=== PATIENT | female | born 1955 | race Asian ===

== ENCOUNTER 2022-06-03 08:18 | Emergency (ER) | payer MEDICARE ==
[2022-06-03] MEDS ORDERED: FLUCONAZOLE 200 MG TAB PO ONE (08:59)
[2022-06-03] MEDS ORDERED: HYDROcodone/ACETAMINOPHEN 5-325 MG TAB PO ONE (08:59)
--- NOTE | 2022-06-03 09:03 | Emergency Department Report ---
HPI - General Chief Complaint: Urogenital-Female Time Seen by Provider: 06/03/22 08:50 - HPI HPI: Room 36 The patient is a six 7-year-old female present with chief complaint of intertriginous candidiasis. Patient states she developed left inguinal rash 2 days ago. Patient is a resident in a group home and states last night they initiated nystatin therapy placed in the powder in the left groin. The patient states when she awakened this morning the rash was still present so she wanted to come to the emergency department. In the ED patient was informed that we will take time for nystatin to treat the infection. Patient complains of burning and irritation in the left inguinal region ED Past Medical Hx - Past Medical History Hx Hypertension: Yes Hx Diabetes: Yes Hx COPD: Yes Hx HIV: Yes - Surgical History Hx Cholecystectomy: Yes Additional Surgical History: Hysterectomy, hernia repair - Family History Family history: no significant - Social History Smoking Status: Current Every Day Smoker (1 pack/day) Substance Use Type: None - Medications Home Medications: Home Medications Medication Instructions Recorded Confirmed Last Taken Type Acetaminophen [Aphen] 2 tab PO Q8HR PRN 02/12/22 02/12/22 Unknown History Aspirin [Aspirin BABY CHEW TAB] 81 mg PO QDAY 02/12/22 02/12/22 Unknown History Descovy 200-25 mg Tablet 1 tab PO DAILY 02/12/22 02/12/22 Unknown History Famotidine [Pepcid] 20 mg PO BID #30 tablet 02/12/22 Unknown Rx Fluticasone Propionate [Flovent 1 spray .ROUTE DAILY 02/12/22 02/12/22 Unknown History Diskus] Gabapentin 1 tab PO TID 02/12/22 02/12/22 Unknown History Loratadine [Allergy Relief] 10 mg PO DAILY 02/12/22 02/12/22 Unknown History Losartan [Cozaar] 50 mg PO QDAY #30 tablet 02/12/22 Unknown Rx Maalox Advanced Suspension 30 ml PO Q8HR PRN 02/12/22 02/12/22 Unknown History Mirtazapine [Remeron 15mg TAB] 15 mg PO QHS 02/12/22 02/12/22 Unknown History Ondansetron (Nf) 4 mg PO Q8HR PRN 02/12/22 02/12/22 Unknown History Pantoprazole [Protonix TAB] 40 mg PO QDAY 02/12/22 02/12/22 Unknown History Polymyxin B Sulf/Trimethoprim 17 gm PO BID PRN 02/12/22 02/12/22 Unknown History Prednisone [predniSONE 10 mg 10 mg PO .TAPER #1 02/12/22 Unknown Rx (6-Day Pack, 21 Tabs)] Prezcobix 800 mg-150 mg (Nf) 1 tab PO DAILY 02/12/22 02/12/22 Unknown History Tiotropium [place] [Spiriva] 18 mcg IH DAILY 02/12/22 02/12/22 Unknown History buPROPion HCl [Zyban] 1 tab PO DAILY 02/12/22 02/12/22 Unknown History carvediloL [Coreg] 12.5 mg PO BID@0800,1700 #60 tablet 02/12/22 Unknown Rx oxyCODONE /ACETAMINOPHEN [Percocet 1 tab PO Q6H PRN #12 tablet 02/12/22 Unknown Rx 5/325 mg] polyethylene glycoL 3350 17 gm PO BID PRN 02/12/22 02/12/22 Unknown History Lispro Insulin [HumaLOG] 0 unit SUB-Q ACHS units 02/13/22 Unknown Rx Magnesium Hydroxide [Milk of 30 ml PO Q4H PRN oral.liqd 02/13/22 Unknown Rx Magnesia] HYDROcodone/APAP 5-325 [[place] 1 - 2 each PO Q6HR PRN #14 tablet 06/03/22 Unknown Rx 5/325] Nystatin 1 each TP BID 10 Days 06/03/22 Unknown Rx ED Review of Systems ROS: Stated complaint: YEAST INFECTION Other details as noted in HPI Constitutional: denies: fever Eyes: denies: eye pain ENT: denies: throat pain Respiratory: no symptoms reported Cardiovascular: denies: chest pain Endocrine: no symptoms reported Gastrointestinal: denies: abdominal pain Musculoskeletal: denies: back pain Skin: rash Neurological: denies: headache Physical Exam - Physical Exam Vital Signs: Vital Signs 06/03/22 08:25 Temperature 97.8 F Pulse Rate 86 Respiratory 18 Rate Blood Pressure 110/70 [Left] O2 Sat by Pulse 98 Oximetry Physical Exam: GENERAL: The patient is well-developed well-nourished female lying on stretcher not appearing to be in acute distress. [] HEENT: Normocephalic. Atraumatic. Extraocular motions are intact. Patient has moist mucous membranes. NECK: Supple. Trachea midline CHEST/LUNGS: Clear to auscultation. There is no respiratory distress noted. HEART/CARDIOVASCULAR: Regular. There is no tachycardia. There is no gallop rub or murmur. ABDOMEN: Abdomen is soft, nontender. Patient has normal bowel sounds. There is no abdominal distention. SKIN: There is erythema in the left inguinal region consistent with intertriginous candidiasis. Evidence of nystatin already placed on the rash. NEURO: The patient is awake, alert, and oriented. The patient is cooperative. The patient has no focal neurologic deficits. The patient has normal speech. GCS 15 MUSCULOSKELETAL: There is no evidence of acute injury. ED Course Vital Signs 06/03/22 08:25 Temperature 97.8 F Pulse Rate 86 Respiratory 18 Rate Blood Pressure 110/70 [Left] O2 Sat by Pulse 98 Oximetry ED Medical Decision Making - Differential Diagnosis Intertriginous candidiasis Critical care attestation.: If time is entered above; I have spent that time in minutes in the direct care of this critically ill patient, excluding procedure time. ED Disposition Clinical Impression: Intertriginous candidiasis Disposition: 03 ALF FACILITY Is pt being admited?: No Does the pt Need Aspirin: No Condition: Stable Instructions: Skin Yeast Infection Additional Instructions: Return to the emergency department should you develop worsening symptoms, inability to tolerate food or liquids, high fever or any other concerns Prescriptions: HYDROcodone/APAP 5-325 [[place] 5/325] 1 - 2 each PO Q6HR PRN #14 tablet PRN Reason: Pain Nystatin 1 each TP BID 10 Days Referrals: PRIMARY CARE [Referring] - 3-5 Days Time of Disposition: 09:13
[2022-06-03 14:07] VITALS: BP 102/81
== END 2022-06-03 14:00 ==
LOC: ED 08:18
DX: B37.2 Candidiasis of skin and nail (principal); I10 Essential (primary) hypertension; E11.9 Type 2 diabetes mellitus without complications; J44.1 Chronic obstructive pulmonary disease with (acute) exacerbation; Z21 Asymptomatic human immunodeficiency virus [HIV] infection status; F17.200 Nicotine dependence, unspecified, uncomplicated
CPT/HCPCS: 99283

== ENCOUNTER 2022-06-06 05:00 | Emergency (ER) | payer MEDICARE ==
[2022-06-06 09:04] LABS: Basophils % (Auto) 0.6 % (0.0-1.8); Eosinophils # (Auto) 0.1 K/mm3 (0.0-0.4); Eosinophils % (Auto) 1.8 % (0.0-4.3); Hematocrit 37.8 % (30.3-42.9); Hemoglobin 12.2 gm/dl (10.1-14.3); Lymphocytes # (Auto) 1.8 K/mm3 (1.2-5.4); Lymphocytes % (Auto) 23.5 % (13.4-35.0); Mean Corpuscular HGB Conc 32 % (30-34); Mean Corpuscular Volume 94 fl (79-97); Monocytes # (Auto) 0.9 K/mm3 (0.0-0.8); Monocytes % (Auto) 11.9 % (0.0-7.3); Platelet Count 348 K/mm3 (140-440); Red Blood Count 4.02 M/mm3 (3.65-5.03); Red Cell Distribution Width 15.7 % (13.2-15.2)
[2022-06-06 09:21] LABS: Calcium 8.7 mg/dL (8.4-10.2)
[2022-06-06 09:34] LABS: Mucus,Urine FEW /HPF; RBC,Urine < 1.0 /HPF (0.0-6.0); WBC,Urine < 1.0 /HPF (0.0-6.0)
[2022-06-06 10:37] LABS: Color,Urine Straw (Yellow)
[2022-06-06 10:38] LABS: Bilirubin,Urine Negative (Negative); Blood,Urine Negative (Negative); Urobilinogen,Urine < 2.0 mg/dL (<2.0)
--- NOTE | 2022-06-06 11:34 | Emergency Department Report ---
- General Chief complaint: Urogenital-Female Stated complaint: VAGINAL BURNING Time Seen by Provider: 06/06/22 07:18 Source: patient, EMS Mode of arrival: Stretcher Limitations: Physical Limitation - History of Present Illness Initial comments: Patient is 67-year-old female with history of diabetes seen here on 06/03 for groin candidiasis for which she was prescribed nystatin powder. States he woke up this morning with persistent rash and requested to be evaluated. Denies feve r or chills. - Related Data Home Medications Medication Instructions Recorded Confirmed Last Taken Acetaminophen [Aphen] 2 tab PO Q8HR PRN 02/12/22 02/12/22 Unknown Aspirin [Aspirin BABY CHEW TAB] 81 mg PO QDAY 02/12/22 02/12/22 Unknown Descovy 200-25 mg Tablet 1 tab PO DAILY 02/12/22 02/12/22 Unknown Fluticasone Propionate [Flovent 1 spray .ROUTE DAILY 02/12/22 02/12/22 Unknown Diskus] Gabapentin 1 tab PO TID 02/12/22 02/12/22 Unknown Loratadine [Allergy Relief] 10 mg PO DAILY 02/12/22 02/12/22 Unknown Maalox Advanced Suspension 30 ml PO Q8HR PRN 02/12/22 02/12/22 Unknown Mirtazapine [Remeron 15mg TAB] 15 mg PO QHS 02/12/22 02/12/22 Unknown Ondansetron (Nf) 4 mg PO Q8HR PRN 02/12/22 02/12/22 Unknown Pantoprazole [Protonix TAB] 40 mg PO QDAY 02/12/22 02/12/22 Unknown Polymyxin B Sulf/Trimethoprim 17 gm PO BID PRN 02/12/22 02/12/22 Unknown Prezcobix 800 mg-150 mg (Nf) 1 tab PO DAILY 02/12/22 02/12/22 Unknown Tiotropium [place] [Spiriva] 18 mcg IH DAILY 02/12/22 02/12/22 Unknown buPROPion HCl [Zyban] 1 tab PO DAILY 02/12/22 02/12/22 Unknown polyethylene glycoL 3350 17 gm PO BID PRN 02/12/22 02/12/22 Unknown Previous Rx's Medication Instructions Recorded Last Taken Type Famotidine [Pepcid] 20 mg PO BID #30 tablet 02/12/22 Unknown Rx Losartan [Cozaar] 50 mg PO QDAY #30 tablet 02/12/22 Unknown Rx Prednisone [predniSONE 10 mg 10 mg PO .TAPER #1 02/12/22 Unknown Rx (6-Day Pack, 21 Tabs)] carvediloL [Coreg] 12.5 mg PO BID@0800,1700 #60 tablet 02/12/22 Unknown Rx oxyCODONE /ACETAMINOPHEN [Percocet 1 tab PO Q6H PRN #12 tablet 02/12/22 Unknown Rx 5/325 mg] Lispro Insulin [HumaLOG] 0 unit SUB-Q ACHS units 02/13/22 Unknown Rx Magnesium Hydroxide [Milk of 30 ml PO Q4H PRN oral.liqd 02/13/22 Unknown Rx Magnesia] HYDROcodone/APAP 5-325 [[place] 1 - 2 each PO Q6HR PRN #14 tablet 06/03/22 Unknown Rx 5/325] Nystatin 1 each TP BID 10 Days 06/03/22 Unknown Rx Allergies Allergy/AdvReac Type Severity Reaction Status Date / Time metronidazole [From Flagyl] Allergy Unknown Verified 06/03/22 08:27 Abscess Boil HPI - HPI Chief Complaint: Urogenital-Female Stated Complaint: VAGINAL BURNING Time Seen by Provider: 06/06/22 07:18 Home Medications: Home Medications Medication Instructions Recorded Confirmed Last Taken Acetaminophen [Aphen] 2 tab PO Q8HR PRN 02/12/22 02/12/22 Unknown Aspirin [Aspirin BABY CHEW TAB] 81 mg PO QDAY 02/12/22 02/12/22 Unknown Descovy 200-25 mg Tablet 1 tab PO DAILY 02/12/22 02/12/22 Unknown Fluticasone Propionate [Flovent 1 spray .ROUTE DAILY 02/12/22 02/12/22 Unknown Diskus] Gabapentin 1 tab PO TID 02/12/22 02/12/22 Unknown Loratadine [Allergy Relief] 10 mg PO DAILY 02/12/22 02/12/22 Unknown Maalox Advanced Suspension 30 ml PO Q8HR PRN 02/12/22 02/12/22 Unknown Mirtazapine [Remeron 15mg TAB] 15 mg PO QHS 02/12/22 02/12/22 Unknown Ondansetron (Nf) 4 mg PO Q8HR PRN 02/12/22 02/12/22 Unknown Pantoprazole [Protonix TAB] 40 mg PO QDAY 02/12/22 02/12/22 Unknown Polymyxin B Sulf/Trimethoprim 17 gm PO BID PRN 02/12/22 02/12/22 Unknown Prezcobix 800 mg-150 mg (Nf) 1 tab PO DAILY 02/12/22 02/12/22 Unknown Tiotropium [place] [Spiriva] 18 mcg IH DAILY 02/12/22 02/12/22 Unknown buPROPion HCl [Zyban] 1 tab PO DAILY 02/12/22 02/12/22 Unknown polyethylene glycoL 3350 17 gm PO BID PRN 02/12/22 02/12/22 Unknown Previous Rx's Medication Instructions Recorded Last Taken Type Famotidine [Pepcid] 20 mg PO BID #30 tablet 02/12/22 Unknown Rx Losartan [Cozaar] 50 mg PO QDAY #30 tablet 02/12/22 Unknown Rx Prednisone [predniSONE 10 mg 10 mg PO .TAPER #1 02/12/22 Unknown Rx (6-Day Pack, 21 Tabs)] carvediloL [Coreg] 12.5 mg PO BID@0800,1700 #60 tablet 02/12/22 Unknown Rx oxyCODONE /ACETAMINOPHEN [Percocet 1 tab PO Q6H PRN #12 tablet 02/12/22 Unknown Rx 5/325 mg] Lispro Insulin [HumaLOG] 0 unit SUB-Q ACHS units 02/13/22 Unknown Rx Magnesium Hydroxide [Milk of 30 ml PO Q4H PRN oral.liqd 02/13/22 Unknown Rx Magnesia] HYDROcodone/APAP 5-325 [[place] 1 - 2 each PO Q6HR PRN #14 tablet 06/03/22 Unknown Rx 5/325] Nystatin 1 each TP BID 10 Days 06/03/22 Unknown Rx Allergies/Adverse Reactions: Allergies Allergy/AdvReac Type Severity Reaction Status Date / Time metronidazole [From Flagyl] Allergy Unknown Verified 06/03/22 08:27 ED Review of Systems ROS: Stated complaint: VAGINAL BURNING Other details as noted in HPI Constitutional: denies: chills, fever Respiratory: denies: cough, shortness of breath, wheezing Cardiovascular: denies: chest pain, palpitations Gastrointestinal: denies: abdominal pain, nausea, diarrhea Musculoskeletal: denies: back pain, joint swelling, arthralgia Skin: rash Neurological: as per HPI Psychiatric: denies: anxiety, depression ED Past Medical Hx - Past Medical History Previous Medical History?: Yes Hx Hypertension: Yes Hx Diabetes: Yes Hx COPD: Yes Hx HIV: Yes - Surgical History Past Surgical History?: Yes Hx Cholecystectomy: Yes Additional Surgical History: Hysterectomy, hernia repair - Social History Smoking Status: Never Smoker Substance Use Type: None - Medications Home Medications: Home Medications Medication Instructions Recorded Confirmed Last Taken Type Acetaminophen [Aphen] 2 tab PO Q8HR PRN 02/12/22 02/12/22 Unknown History Aspirin [Aspirin BABY CHEW TAB] 81 mg PO QDAY 02/12/22 02/12/22 Unknown History [place]cov[place] 200-25 mg Tablet 1 tab PO DAILY 02/12/22 02/12/22 Unknown History Famotidine [Pepcid] 20 mg PO BID #30 tablet 02/12/22 Unknown Rx Fluticasone Propionate [Flovent 1 spray .ROUTE DAILY 02/12/22 02/12/22 Unknown History Diskus] Gabapentin 1 tab PO TID 02/12/22 02/12/22 Unknown History Loratadine [Allergy Relief] 10 mg PO DAILY 02/12/22 02/12/22 Unknown History Losartan [Cozaar] 50 mg PO QDAY #30 tablet 02/12/22 Unknown Rx Maalox Advanced Suspension 30 ml PO Q8HR PRN 02/12/22 02/12/22 Unknown History Mirtazapine [Remeron 15mg TAB] 15 mg PO QHS 02/12/22 02/12/22 Unknown History Ondansetron (Nf) 4 mg PO Q8HR PRN 02/12/22 02/12/22 Unknown History Pantoprazole [Protonix TAB] 40 mg PO QDAY 02/12/22 02/12/22 Unknown History Polymyxin B Sulf/Trimethoprim 17 gm PO BID PRN 02/12/22 02/12/22 Unknown History Prednisone [predniSONE 10 mg 10 mg PO .TAPER #1 02/12/22 Unknown Rx (6-Day Pack, 21 Tabs)] Prezcobix 800 mg-150 mg (Nf) 1 tab PO DAILY 02/12/22 02/12/22 Unknown History Tiotropium [place] [Spiriva] 18 mcg IH DAILY 02/12/22 02/12/22 Unknown History buPROPion HCl [Zyban] 1 tab PO DAILY 02/12/22 02/12/22 Unknown History carvediloL [Coreg] 12.5 mg PO BID@0800,1700 #60 tablet 02/12/22 Unknown Rx oxyCODONE /ACETAMINOPHEN [Percocet 1 tab PO Q6H PRN #12 tablet 02/12/22 Unknown Rx 5/325 mg] polyethylene glycoL 3350 17 gm PO BID PRN 02/12/22 02/12/22 Unknown History Lispro Insulin [HumaLOG] 0 unit SUB-Q ACHS units 02/13/22 Unknown Rx Magnesium Hydroxide [Milk of 30 ml PO Q4H PRN oral.liqd 02/13/22 Unknown Rx Magnesia] HYDROcodone/APAP 5-325 [[place] 1 - 2 each PO Q6HR PRN #14 tablet 06/03/22 Unknown Rx 5/325] Nystatin 1 each TP BID 10 Days 06/03/22 Unknown Rx ED Physical Exam - General Limitations: Physical Limitation General appearance: alert, in no apparent distress - Head Head exam: Present: atraumatic, normocephalic - Respiratory Respiratory exam: Present: normal lung sounds bilaterally. Absent: respiratory distress - Cardiovascular Cardiovascular Exam: Present: regular rate, normal rhythm, bradycardia - GI/Abdominal GI/Abdominal exam: Present: soft. Absent: distended, tenderness - External exam: Present: other ([place] rash to the groin) ED Course Vital Signs 06/06/22 06/06/22 06/06/22 05:01 08:24 08:31 Temperature 99 F Pulse Rate 88 80 79 Respiratory 18 15 15 Rate Blood Pressure 142/89 O2 Sat by Pulse 100 94 93 Oximetry 06/06/22 06/06/22 06/06/22 08:45 09:01 09:15 Temperature Pulse Rate 79 79 79 Respiratory 17 18 18 Rate Blood Pressure 105/65 102/67 102/67 O2 Sat by Pulse 94 92 96 Oximetry 06/06/22 06/06/22 06/06/22 09:31 09:45 10:01 Temperature Pulse Rate 79 76 76 Respiratory 19 19 20 Rate Blood Pressure 102/67 97/60 97/60 O2 Sat by Pulse 94 99 97 Oximetry 06/06/22 06/06/22 06/06/22 10:15 10:31 10:45 Temperature Pulse Rate 82 79 73 Respiratory 20 22 16 Rate Blood Pressure 97/60 168/123 168/123 O2 Sat by Pulse 87 92 97 Oximetry ED Medical Decision Making - Lab Data Result diagrams: 06/06/22 08:29 06/06/22 08:29 - Medical Decision Making Physical exam findings consistent with candidiasis of the inguinal folds. Basic labs are unremarkable. Vital signs are stable. Patient encouraged to continue nystatin powder as directed. Stable for discharge back to nursing facility. Critical care attestation.: If time is entered above; I have spent that time in minutes in the direct care of this critically ill patient, excluding procedure time. ED Disposition Clinical Impression: Intertriginous candidiasis Disposition: 03 LONGTERM FACILITY Is pt being admited?: No Condition: Stable Instructions: Skin Yeast Infection Referrals: RUCHI CONTI MD [Primary Care Provider] - 3-5 Days
[2022-06-06 15:42] VITALS: BP 120/86
== END 2022-06-06 15:43 ==
LOC: ED 05:00
DX: B37.2 Candidiasis of skin and nail (principal); Z88.8 Allergy status to other drugs, medicaments and biological substances; I10 Essential (primary) hypertension; E11.9 Type 2 diabetes mellitus without complications
CPT/HCPCS: 36415; 80048; 81001; 85025; 99283

== ENCOUNTER 2022-06-07 11:42 | Emergency (ER) | payer MEDICARE ==
[2022-06-07] MEDS ORDERED: HYDROcodone/ACETAMINOPHEN 5-325 MG TAB PO ONE (12:48)
--- NOTE | 2022-06-07 12:48 | Emergency Department Report ---
- General Chief complaint: Skin Rash Stated complaint: ABDOMEN PAIN Time Seen by Provider: 06/07/22 12:10 Source: patient, EMS Mode of arrival: Stretcher Limitations: No Limitations - History of Present Illness Initial comments: Patient is 67-year-old female returning today with complaint of painful candidal rash to her inguinal region/inner thighs. She was seen here yesterday for same. She is currently on nystatin powder. - Related Data Home Medications Medication Instructions Recorded Confirmed Last Taken Acetaminophen [Aphen] 2 tab PO Q8HR PRN 02/12/22 02/12/22 Unknown Aspirin [Aspirin BABY CHEW TAB] 81 mg PO QDAY 02/12/22 02/12/22 Unknown Descovy 200-25 mg Tablet 1 tab PO DAILY 02/12/22 02/12/22 Unknown Fluticasone Propionate [Flovent 1 spray .ROUTE DAILY 02/12/22 02/12/22 Unknown Diskus] Gabapentin 1 tab PO TID 02/12/22 02/12/22 Unknown Loratadine [Allergy Relief] 10 mg PO DAILY 02/12/22 02/12/22 Unknown Maalox Advanced Suspension 30 ml PO Q8HR PRN 02/12/22 02/12/22 Unknown Mirtazapine [Remeron 15mg TAB] 15 mg PO QHS 02/12/22 02/12/22 Unknown Ondansetron (Nf) 4 mg PO Q8HR PRN 02/12/22 02/12/22 Unknown Pantoprazole [Protonix TAB] 40 mg PO QDAY 02/12/22 02/12/22 Unknown Polymyxin B Sulf/Trimethoprim 17 gm PO BID PRN 02/12/22 02/12/22 Unknown Prezcobix 800 mg-150 mg (Nf) 1 tab PO DAILY 02/12/22 02/12/22 Unknown Tiotropium [place] [Spiriva] 18 mcg IH DAILY 02/12/22 02/12/22 Unknown buPROPion HCl [Zyban] 1 tab PO DAILY 02/12/22 02/12/22 Unknown polyethylene glycoL 3350 17 gm PO BID PRN 02/12/22 02/12/22 Unknown Previous Rx's Medication Instructions Recorded Last Taken Type Famotidine [Pepcid] 20 mg PO BID #30 tablet 02/12/22 Unknown Rx Losartan [Cozaar] 50 mg PO QDAY #30 tablet 02/12/22 Unknown Rx Prednisone [predniSONE 10 mg 10 mg PO .TAPER #1 02/12/22 Unknown Rx (6-Day Pack, 21 Tabs)] carvediloL [Coreg] 12.5 mg PO BID@0800,1700 #60 tablet 02/12/22 Unknown Rx oxyCODONE /ACETAMINOPHEN [Percocet 1 tab PO Q6H PRN #12 tablet 02/12/22 Unknown Rx 5/325 mg] Lispro Insulin [HumaLOG] 0 unit SUB-Q ACHS units 02/13/22 Unknown Rx Magnesium Hydroxide [Milk of 30 ml PO Q4H PRN oral.liqd 02/13/22 Unknown Rx Magnesia] HYDROcodone/APAP 5-325 [[place] 1 - 2 each PO Q6HR PRN #14 tablet 06/03/22 Unknown Rx 5/325] Nystatin 1 each TP BID 10 Days 06/03/22 Unknown Rx HYDROcodone/APAP 5-325 [[place] 1 each PO Q6HR PRN #12 tablet 06/07/22 Unknown Rx 5/325] Allergies Allergy/AdvReac Type Severity Reaction Status Date / Time metronidazole [From Flagyl] Allergy Unknown Verified 06/07/22 11:46 Abscess Boil HPI - HPI Chief Complaint: Skin Rash Stated Complaint: ABDOMEN PAIN Time Seen by Provider: 06/07/22 12:10 Home Medications: Home Medications Medication Instructions Recorded Confirmed Last Taken Acetaminophen [Aphen] 2 tab PO Q8HR PRN 02/12/22 02/12/22 Unknown Aspirin [Aspirin BABY CHEW TAB] 81 mg PO QDAY 02/12/22 02/12/22 Unknown [place] 200-25 mg Tablet 1 tab PO DAILY 02/12/22 02/12/22 Unknown Fluticasone Propionate [Flovent 1 spray .ROUTE DAILY 02/12/22 02/12/22 Unknown Diskus] Gabapentin 1 tab PO TID 02/12/22 02/12/22 Unknown Loratadine [Allergy Relief] 10 mg PO DAILY 02/12/22 02/12/22 Unknown Maalox Advanced Suspension 30 ml PO Q8HR PRN 02/12/22 02/12/22 Unknown Mirtazapine [Remeron 15mg TAB] 15 mg PO QHS 02/12/22 02/12/22 Unknown Ondansetron (Nf) 4 mg PO Q8HR PRN 02/12/22 02/12/22 Unknown Pantoprazole [Protonix TAB] 40 mg PO QDAY 02/12/22 02/12/22 Unknown Polymyxin B Sulf/Trimethoprim 17 gm PO BID PRN 02/12/22 02/12/22 Unknown Prezcobix 800 mg-150 mg (Nf) 1 tab PO DAILY 02/12/22 02/12/22 Unknown Tiotropium [place] [Spiriva] 18 mcg IH DAILY 02/12/22 02/12/22 Unknown buPROPion HCl [Zyban] 1 tab PO DAILY 02/12/22 02/12/22 Unknown polyethylene glycoL 3350 17 gm PO BID PRN 02/12/22 02/12/22 Unknown Previous Rx's Medication Instructions Recorded Last Taken Type Famotidine [Pepcid] 20 mg PO BID #30 tablet 02/12/22 Unknown Rx Losartan [Cozaar] 50 mg PO QDAY #30 tablet 02/12/22 Unknown Rx Prednisone [predniSONE 10 mg 10 mg PO .TAPER #1 02/12/22 Unknown Rx (6-Day Pack, 21 Tabs)] carvediloL [Coreg] 12.5 mg PO BID@0800,1700 #60 tablet 02/12/22 Unknown Rx oxyCODONE /ACETAMINOPHEN [Percocet 1 tab PO Q6H PRN #12 tablet 02/12/22 Unknown Rx 5/325 mg] Lispro Insulin [HumaLOG] 0 unit SUB-Q ACHS units 02/13/22 Unknown Rx Magnesium Hydroxide [Milk of 30 ml PO Q4H PRN oral.liqd 02/13/22 Unknown Rx Magnesia] HYDROcodone/APAP 5-325 [[place] 1 - 2 each PO Q6HR PRN #14 tablet 06/03/22 Unknown Rx 5/325] Nystatin 1 each TP BID 10 Days 06/03/22 Unknown Rx HYDROcodone/APAP 5-325 [[place] 1 each PO Q6HR PRN #12 tablet 06/07/22 Unknown Rx 5/325] Allergies/Adverse Reactions: Allergies Allergy/AdvReac Type Severity Reaction Status Date / Time metronidazole [From Flagyl] Allergy Unknown Verified 06/07/22 11:46 ED Review of Systems ROS: Stated complaint: ABDOMEN PAIN Other details as noted in HPI Constitutional: denies: chills, fever Respiratory: denies: cough, shortness of breath, wheezing Cardiovascular: denies: chest pain, palpitations Gastrointestinal: denies: abdominal pain, nausea, diarrhea Musculoskeletal: denies: back pain, joint swelling, arthralgia Skin: rash Neurological: denies: headache, weakness, paresthesias Psychiatric: denies: anxiety, depression ED Past Medical Hx - Past Medical History Hx Hypertension: Yes Hx Diabetes: Yes Hx COPD: Yes Hx HIV: Yes - Surgical History Hx Cholecystectomy: Yes Additional Surgical History: Hysterectomy, hernia repair - Social History Smoking Status: Never Smoker Substance Use Type: None - Medications Home Medications: Home Medications Medication Instructions Recorded Confirmed Last Taken Type Acetaminophen [Aphen] 2 tab PO Q8HR PRN 02/12/22 02/12/22 Unknown History Aspirin [Aspirin BABY CHEW TAB] 81 mg PO QDAY 02/12/22 02/12/22 Unknown History [place]cov[place] 200-25 mg Tablet 1 tab PO DAILY 02/12/22 02/12/22 Unknown History Famotidine [Pepcid] 20 mg PO BID #30 tablet 02/12/22 Unknown Rx Fluticasone Propionate [Flovent 1 spray .ROUTE DAILY 02/12/22 02/12/22 Unknown History Diskus] Gabapentin 1 tab PO TID 02/12/22 02/12/22 Unknown History Loratadine [Allergy Relief] 10 mg PO DAILY 02/12/22 02/12/22 Unknown History Losartan [Cozaar] 50 mg PO QDAY #30 tablet 02/12/22 Unknown Rx Maalox Advanced Suspension 30 ml PO Q8HR PRN 02/12/22 02/12/22 Unknown History Mirtazapine [Remeron 15mg TAB] 15 mg PO QHS 02/12/22 02/12/22 Unknown History Ondansetron (Nf) 4 mg PO Q8HR PRN 02/12/22 02/12/22 Unknown History Pantoprazole [Protonix TAB] 40 mg PO QDAY 02/12/22 02/12/22 Unknown History Polymyxin B Sulf/Trimethoprim 17 gm PO BID PRN 02/12/22 02/12/22 Unknown History Prednisone [predniSONE 10 mg 10 mg PO .TAPER #1 02/12/22 Unknown Rx (6-Day Pack, 21 Tabs)] Prezcobix 800 mg-150 mg (Nf) 1 tab PO DAILY 02/12/22 02/12/22 Unknown History Tiotropium [place] [Spiriva] 18 mcg IH DAILY 02/12/22 02/12/22 Unknown History buPROPion HCl [Zyban] 1 tab PO DAILY 02/12/22 02/12/22 Unknown History carvediloL [Coreg] 12.5 mg PO BID@0800,1700 #60 tablet 02/12/22 Unknown Rx oxyCODONE /ACETAMINOPHEN [Percocet 1 tab PO Q6H PRN #12 tablet 02/12/22 Unknown Rx 5/325 mg] polyethylene glycoL 3350 17 gm PO BID PRN 02/12/22 02/12/22 Unknown History Lispro Insulin [HumaLOG] 0 unit SUB-Q ACHS units 02/13/22 Unknown Rx Magnesium Hydroxide [Milk of 30 ml PO Q4H PRN oral.liqd 02/13/22 Unknown Rx Magnesia] HYDROcodone/APAP 5-325 [[place] 1 - 2 each PO Q6HR PRN #14 tablet 06/03/22 Unknown Rx 5/325] Nystatin 1 each TP BID 10 Days 06/03/22 Unknown Rx HYDROcodone/APAP 5-325 [[place] 1 each PO Q6HR PRN #12 tablet 06/07/22 Unknown Rx 5/325] ED Physical Exam - General Limitations: No Limitations General appearance: alert, in no apparent distress, obese - Head Head exam: Present: atraumatic, normocephalic - Respiratory Respiratory exam: Present: normal lung sounds bilaterally. Absent: respiratory distress, wheezes - Cardiovascular Cardiovascular Exam: Present: regular rate, normal rhythm, normal heart sounds - GI/Abdominal GI/Abdominal exam: Present: soft, other (Panniculus present covering inguinal folds). Absent: distended, tenderness - Rectal Rectal exam: Present: deferred - Neurological Exam Neurological exam: Present: alert, oriented X3 - Psychiatric Psychiatric exam: Present: normal affect, normal mood - Skin Skin exam: Present: warm, dry, erythema (Candidal rash to inguinal region between folds of thighs and large panniculus) ED Course Vital Signs 06/07/22 11:44 Temperature 98 F Pulse Rate 88 Respiratory 18 Rate Blood Pressure 114/74 [Left] O2 Sat by Pulse 99 Oximetry ED Medical Decision Making - Medical Decision Making Patient given Willow for pain. Explained to the patient that her candidal infection is difficult to treat given inability to lift her panniculus off of the affected areas. I encouraged her to consider following up with plastic surgeon for possible panniculectomy. Will discharge back to nursing facility with Rx for Willow. Critical care attestation.: If time is entered above; I have spent that time in minutes in the direct care of this critically ill patient, excluding procedure time. ED Disposition Clinical Impression: Jaquelin rash of groin Disposition: [facility] Is pt being admited?: No Does the pt Need Aspirin: No Condition: Stable Instructions: Skin Yeast Infection, Panniculectomy Additional Instructions: Please consider scheduling appointment with plastic surgeon to discuss possibility of panniculectomy. Please try your best to keep the affected areas as dry as possible. Time of Disposition: 12:53
[2022-06-07] MEDS ORDERED: diphenhydrAMINE 25 MG CAP PO ONE (13:54)
[2022-06-07 17:05] VITALS: BP 115/71
== END 2022-06-07 17:05 ==
LOC: ED 11:42
DX: B37.9 Candidiasis, unspecified (principal); I10 Essential (primary) hypertension; E11.9 Type 2 diabetes mellitus without complications; J44.1 Chronic obstructive pulmonary disease with (acute) exacerbation; Z21 Asymptomatic human immunodeficiency virus [HIV] infection status; Z90.49 Acquired absence of other specified parts of digestive tract; Z91.09 Other allergy status, other than to drugs and biological substances; Z79.899 Other long term (current) drug therapy
CPT/HCPCS: 99283

== ENCOUNTER 2022-07-17 08:06 | Emergency (ER) | payer MEDICARE ==
[2022-07-17] MEDS ORDERED: ACETAMINOPHEN 325 MG TAB PO ONE (10:17)
--- NOTE | 2022-07-17 10:22 | Emergency Department Report ---
ED Rash HPI - HPI Chief Complaint: Skin Rash Stated Complaint: ITCHING Rash Symptoms: Yes Itching, No Facial Swelling, No Tongue/Oral Swelling, No Breathing Difficulties, No Choking Sensation, No Wheezing/Dyspnea, No Peeling, No Blistering, No Fever, No Lightheaded, No Malaise, No Myalgias Severity: mild Other History: 67-year-old female presents to the ED complaining rash on her left arm and back times several years. Patient is a current resident of [facility]. She states she take Benadryl every night but it does not really help with the hip with the itching. There is no obvious rash noted the patient does have multiple bruising spot noted from where she is she states she is taking injection in her stomach. Patient is alert and oriented x3. No acute distress noted. No ill appearance noted. Denies any fever chills or nausea or vomiting. ED Review of Systems ROS: Stated complaint: ITCHING Other details as noted in HPI Constitutional: denies: chills, fever Eyes: denies: eye pain, eye discharge, vision change ENT: denies: ear pain, throat pain Respiratory: denies: cough, shortness of breath, wheezing Cardiovascular: denies: chest pain, palpitations Endocrine: no symptoms reported Gastrointestinal: denies: abdominal pain, nausea, diarrhea Genitourinary: denies: urgency, dysuria, discharge Musculoskeletal: denies: back pain, joint swelling, arthralgia Skin: rash. denies: lesions Neurological: denies: headache, weakness, paresthesias Psychiatric: denies: anxiety, depression Hematological/Lymphatic: denies: easy bleeding, easy bruising ED Past Medical Hx - Past Medical History Hx Hypertension: Yes Hx Diabetes: Yes Hx COPD: Yes Hx HIV: Yes Additional medical history: HIV, COPD, chronic nonspecific abd pain, osteoarthritis, hernia - Surgical History Hx Cholecystectomy: Yes Additional Surgical History: Hysterectomy, hernia repair - Social History Smoking Status: Never Smoker - Medications Home Medications: Home Medications Medication Instructions Recorded Confirmed Last Taken Type Acetaminophen [Aphen] 2 tab PO Q8HR PRN 02/12/22 02/12/22 Unknown History Aspirin [Aspirin BABY CHEW TAB] 81 mg PO QDAY 02/12/22 02/12/22 Unknown History Descovy 200-25 mg Tablet 1 tab PO DAILY 02/12/22 02/12/22 Unknown History Famotidine [Pepcid] 20 mg PO BID #30 tablet 02/12/22 Unknown Rx Fluticasone Propionate [Flovent 1 spray .ROUTE DAILY 02/12/22 02/12/22 Unknown History Diskus] Gabapentin 1 tab PO TID 02/12/22 02/12/22 Unknown History Loratadine [Allergy Relief] 10 mg PO DAILY 02/12/22 02/12/22 Unknown History Losartan [Cozaar] 50 mg PO QDAY #30 tablet 02/12/22 Unknown Rx Maalox Advanced Suspension 30 ml PO Q8HR PRN 02/12/22 02/12/22 Unknown History Mirtazapine [Remeron 15mg TAB] 15 mg PO QHS 02/12/22 02/12/22 Unknown History Ondansetron (Nf) 4 mg PO Q8HR PRN 02/12/22 02/12/22 Unknown History Pantoprazole [Protonix TAB] 40 mg PO QDAY 02/12/22 02/12/22 Unknown History Polymyxin B Sulf/Trimethoprim 17 gm PO BID PRN 02/12/22 02/12/22 Unknown History Prednisone [predniSONE 10 mg 10 mg PO .TAPER #1 02/12/22 Unknown Rx (6-Day Pack, 21 Tabs)] Prezcobix 800 mg-150 mg (Nf) 1 tab PO DAILY 02/12/22 02/12/22 Unknown History Tiotropium [place] [Spiriva] 18 mcg IH DAILY 02/12/22 02/12/22 Unknown History buPROPion HCl [Zyban] 1 tab PO DAILY 02/12/22 02/12/22 Unknown History carvediloL [Coreg] 12.5 mg PO BID@0800,1700 #60 tablet 02/12/22 Unknown Rx oxyCODONE /ACETAMINOPHEN [Percocet 1 tab PO Q6H PRN #12 tablet 02/12/22 Unknown Rx 5/325 mg] polyethylene glycoL 3350 17 gm PO BID PRN 02/12/22 02/12/22 Unknown History Lispro Insulin [HumaLOG] 0 unit SUB-Q ACHS units 02/13/22 Unknown Rx Magnesium Hydroxide [Milk of 30 ml PO Q4H PRN oral.liqd 02/13/22 Unknown Rx Magnesia] HYDROcodone/APAP 5-325 [[place] 1 - 2 each PO Q6HR PRN #14 tablet 06/03/22 Unknown Rx 5/325] Nystatin 1 each TP BID 10 Days 06/03/22 Unknown Rx HYDROcodone/APAP 5-325 [[place] 1 each PO Q6HR PRN #12 tablet 06/07/22 Unknown Rx 5/325] hydrOXYzine PAMOATE [Vistaril] 25 mg PO Q6HR PRN 15 Days #30 07/17/22 Unknown Rx capsule methylPREDNISolone [Medrol 4MG 4 mg PO DAILY 6 Days #21 tab 07/17/22 Unknown Rx DOSEPAK (21 tabs)] Rash Exam - Exam General: Vital signs noted. No distress. Alert and acting appropriately. HEENT: No Periorbital Edema, No Conjuctival Injection, No Chemosis, No Perioral Edema, No Tongue Edema, No Uvular Edema, No Compromised Airway, No Drooling Lungs: Yes Good Air Exchange (Normal Breath Sounds), No Wheezes, No Ronchi, No Stridor, No Cough, No Labored Respirations, No Retractions, No Use of Accessory Muscles, No Other Abnormal Lung Sounds Heart: Yes Regular, No Murmur Skin: No Urticarial Rash, No Maculopapular Rash, No Morbilliform rash, No Bulla(e), No Excoriations, No Weeping, No Tenderness, No Erythema, No Edema, No Encrustations, No Other Other: Positive: Abdomen Normal, Neurologic Normal, Musculoskeletal Normal ED Course Vital Signs 07/17/22 08:06 Temperature 98.2 F Pulse Rate 60 Respiratory 16 Rate Blood Pressure 168/84 [Left] O2 Sat by Pulse 98 Oximetry ED Medical Decision Making - Medical Decision Making 67-year-old female presents to the ED complaining rash on her left arm and back times several years. Patient is a current resident of [facility]. She states she take Benadryl every night but it does not really help with the hip with the itching. There is no obvious rash noted the patient does have multiple bruising spot noted from where she is she states she is taking injection in her stomach. Patient is alert and oriented x3. No acute distress noted. No ill appearance noted. Denies any fever chills or nausea or vomiting. Patient complaining of pain from rash states pain was a 2 out of 10. Physical examination patient multiple old rash noted. Rechecked the patient is resting quietly , comfortable and feeling better. I discussed the results of diagnostic study, my clinical impression and the plan for further treatment with the patient. Patient agrees with plan and discharge at this present time. All question addressed. I have given the patient instruction regarding a diagnosis ,expectation ,follow- up and return precaution. I explained to the patient that emergent condition may arise and to return to the ED for new worsen and any new persisting condition. I have explained the importance of following up with the primary care physician or referral physician listed below has instructed. The patient verbalized understanding of discharge instruction. Critical care attestation.: If time is entered above; I have spent that time in minutes in the direct care of this critically ill patient, excluding procedure time. ED Disposition Clinical Impression: Rash Disposition: [facility] Is pt being admited?: No Does the pt Need Aspirin: No Condition: Stable Instructions: Hives, [id number], Rash, Adult, [id number] Additional Instructions: Take medication as prescribed Return to ED for any worsening symptom Prescriptions: methylPREDNISolone [Medrol 4MG DOSEPAK (21 tabs)] 4 mg PO DAILY 6 Days #21 tab hydrOXYzine PAMOATE [Vistaril] 25 mg PO Q6HR PRN 15 Days #30 capsule PRN Reason: Itching Referrals: PRIMARY CARE, [Primary Care Provider] - 3-5 Days [facility] [Provider Group] - 3-5 Days Time of Disposition: 10:28
[2022-07-17 10:56] VITALS: BP 167/82
== END 2022-07-17 11:03 ==
LOC: ED 08:06
DX: R21 Rash and other nonspecific skin eruption (principal); I10 Essential (primary) hypertension; E11.9 Type 2 diabetes mellitus without complications; J44.1 Chronic obstructive pulmonary disease with (acute) exacerbation; Z21 Asymptomatic human immunodeficiency virus [HIV] infection status; Z90.49 Acquired absence of other specified parts of digestive tract
CPT/HCPCS: 99283